=== PATIENT | male | born 1980 | race Caucasian/White ===

== ENCOUNTER 2017-04-15 17:19 | Emergency (ER) | payer MEDICAID ==
[~2017-04-15] VITALS: Wt 88.2 kg
--- NOTE | 2017-04-15 19:31 | RADRPT ---
PROCEDURE: XR Knee. CLINICAL INDICATION: Pain TECHNIQUE: AP, lateral and oblique view of the right knee were obtained. The images reviewed on a PACS workstation. COMPARISON: None. FINDINGS: Three views of the right knee demonstrate no displaced fracture. No gross malalignment is seen. Th ere is no significant degenerate change. No patellofemoral disease is identified. There is small kne e joint effusion. There is questionable small loose bodies within the posterior portion of the with joint space. The bones are normally mineralized. Soft tissues are unremarkable. IMPRESSION: No acute fracture dislocation Questionable loose bodies within the posterior aspect of the joint Small knee joint effusion RPTAT: HH .Jos Wu MD, Date Time Electronically viewed and signed by .Jos Wu MD, on 04/15/2017 19:31 .W/
[2017-04-15] MEDS ORDERED: HYDR-906 PO (19:54)
[2017-04-15 20:03] VITALS: BP 141/85; PULSE 88; RESP 18; TEMP 99.3
--- NOTE | 2017-05-01 22:09 | EN ---
Date/Time of Note Date/Time of Note DATE: 05/01/17 TIME: 22:08 Event Note Medicine Medicine Event Note This patient was evaluated by HERB Mosquera. AMY NEWSOME PA-C May 01, 2017 22:09
--- NOTE | 2017-05-05 08:16 | ERD ---
ER Documentation Chief Complaint Chief Complaint R. KNEE PAIN DENIES TRAUMA HPI 6-year-old male presents the emergency department complaining of moderate right knee pain. He admits to restricted range of motion. He denies any trauma. ROS All systems reviewed and are negative except as per history of present illness. Medications Home Meds Active Scripts Hydrocodone/Acetaminophen ([place] 5-325 Tablet) 1 Each Tablet, 1 TAB PO Q6H Y for PAIN, #30 TAB Prov:ALLISON LAIRD PA-C 04/15/17 Allergies Allergies: Coded Allergies: No Known Allergy (Unverified , 04/15/17) PMhx/Soc Medical and Surgical Hx: pt denies Medical Hx, pt denies Surgical Hx Hx Alcohol Use: No Hx Substance Use: No Hx Tobacco Use: No Smoking Status: Never smoker Physical Exam Physical Exam Const: wdwn Head: Atraumatic Eyes: Normal Conjunctiva ENT: Normal External Ears, Nose and Mouth. Neck: Full range of motion..~ No meningismus. Resp: Clear to auscultation bilaterally Cardio: Regular rate and rhythm, no murmurs Abd: Soft, non tender, non distended. Normal bowel sounds Skin: No petechiae or rashes Back: No midline or flank tenderness Ext: TTP right anterior knee, restricted ROM Neur: Awake and alert Psych: Normal Mood and Affect Procedures/MDM Is a 36-year-old male presenting to the emergency department complaining of right knee pain, there is no evidence of acute fracture dislocation however there may be loose bodies within the posterior aspect of the joint and infusion was found on x-ray. I discussed the patient that he will need to follow-up with an orthopedist for further evaluation management. Knee immobilizer was given. Prescription for [place] was provided. Patient is neurovascular intact stable to be discharged home. XRAY knee No acute fracture dislocation Questionable loose bodies within the posterior aspect of the joint Small knee joint effusion Departure Diagnosis: Primary Impression: Knee pain Condition: Stable Patient Instructions: Knee Pain, Uncertain Cause, Knee Effusion Referrals: NO PRIMARY,CARE PHYSICIAN (PCP) Additional Instructions: [facility] para un EXAMEN.Regrese a estas instalaciones si no se mejora jesus esperbamos o jesus le dijimos. [place] toda la medicina liliana y jesus se le indic. Regrese a estas instalaciones si no se mejora jesus esperbamos o jesus le dijimos. La medicina que se le recet puede causarle sueo.NO DEBE MANEJAR NI OPERAR MAQUINARIAS PELIGROSAS mientras esta tomando esta medicina! ALLISON LAIRD PA-C May 05, 2017 08:16
== END 2017-04-15 20:03 | disposition home or self-care (01) ==
LOC: FTE 17:19
DX: M25.561 Pain in right knee (principal)
CPT/HCPCS: 73562

== ENCOUNTER 2018-10-05 18:29 | Emergency (ER) | payer MEDICAID ==
[~2018-10-05] VITALS: Ht 167.6 cm; Wt 89.8 kg
[~2018-10-05 18:29] MED LIST: HYDR-4011 PO
[2018-10-05 19:03] VITALS: Ht 167.6 cm; Wt 89.8 kg
[2018-10-05] MEDS ORDERED: ONDANSETRON (ODT) 4 MG TAB ODT STA (22:15)
[2018-10-05] MEDS ORDERED: KETOROLAC 30 MG INJ IM STA (22:15)
[2018-10-05] MEDS ORDERED: DIAZEPAM 5 MG TAB PO ONE (22:30)
[2018-10-05] MEDS ORDERED: LIDOCAINE/MYLANTA 40 ML BTL PO ONE (22:30)
--- NOTE | 2018-10-05 22:45 | ERD ---
ER Documentation Chief Complaint Chief Complaint CURTIS X'S 2 WEEKS, DENIES NEURO DEFICIT HPI This is a 38-year-old male patient who presents to the emergency room with headache. Patient states he has had a headache x1 month has been to multiple emergency room's for treatment, has not received any prescriptions, has not followed up with primary care doctor. Describes headache pain in bilateral parietal region as squeezing, no photophobia, no phonophobia, no vomiting, no recent illness. + Nausea. Denies blurred vision, is not a smoker, no chronic medical problems. Complains of epigastric pain describing it as acid in his stomach. ROS All systems reviewed and are negative except as per history of present illness. Medications Home Meds Active Scripts Hydrocodone/Acetaminophen ([place] 5-325 Tablet) 1 Each Tablet, 1 TAB PO Q6H PRN for PAIN, #30 TAB Prov:ALLISON LAIRD PA-C 04/15/17 Allergies Allergies: Coded Allergies: No Known Allergy (Unverified , 04/15/17) PMhx/Soc Medical and Surgical Hx: pt denies Medical Hx, pt denies Surgical Hx Hx Alcohol Use: No Hx Substance Use: No Hx Tobacco Use: No Smoking Status: Never smoker FmHx Family History: No diabetes, No coronary disease, No other Physical Exam Vitals Vital Signs Date Temp Pulse Resp B/P (MAP) Pulse Ox O2 O2 Flow FiO2 Time Delivery Rate 10/05/18 97.9 80 20 161/94 95 19:03 (116) Physical Exam Const: No acute distress Head: Atraumatic Eyes: Normal Conjunctiva, PERRL, EOMI ENT: Normal External Ears, Nose and Mouth. Neck: Full range of motion. No meningismus. No lymphadenopathy Resp: Clear to auscultation bilaterally Cardio: Regular rate and rhythm, no murmurs Abd: Soft, non tender, non distended. 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 smile, no paresthesia, normal heel-toe, finger-nose Psych: Normal Mood and Affect Results 24 hrs Current Medications Medications Dose Sig/Aisha Start Time Status Last (Trade) Ordered Route PRN Stop Time Admin Dose Reason Admin Ondansetron 4 mg ONCE STAT 4/30/19 DC 10/05/18 HCl (Zofran ODT 22:15 22:35 Odt) 10/05/18 22:18 40 ml ONCE ONCE 10/05/18 DC 10/05/18 Miscellaneous PO 22:30 22:35 Medication 10/05/18 22:31 (Gi Cocktail (2)) Ketorolac 30 mg ONCE STAT 10/05/18 DC 10/05/18 Tromethamine IM 22:15 22:34 (Toradol) 10/05/18 22:18 Diazepam 10 mg ONCE ONCE 10/05/18 DC 10/05/18 (Valium) PO 22:30 22:35 10/05/18 22:31 Procedures/MDM Is a 38-year-old male patient who presents the emergency room with complaint of headache x1 month. Discussed with patient lifestyle management and stressors. 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 Denies any recent changes in medical occasions, stressors, noxious exposure. ED COURSE: The patient was stable throughout ED course. DIAGNOSTIC IMAGING: CT scanning of the brain were considered but deferred after considering the risks of radiation and absence of focal neurological findings. PROCEDURES: None. MEDICATIONS GIVEN: Zofran, GI cocktail, Toradol, Valium Patient tolerated medication well with no adverse reactions. Patient reported improvement in pain. MDM: Upon reevaluation after medication intervention, patient states he feels greatly improved with headache and epigastric pain nearly resolved. The patient was well-appearing with VSS and without neurological deficits at time of reevaluation and discharge. Clinical and diagnostic exam not suggestive of infection, intracranial process, SAH, SDH, neoplasm, meningitis, encephalitis, aneurysm, thrombus, temporal arteritis, sinusitis. The patient has been provided with instructions on self-care including use of analgesia, reducing triggers, and need for close follow-up with primary care physician within 1-2 days for reevaluation. The patient has been instructed to return immediately for worsening symptoms, change in pattern of current symptoms, or other acute problems. Warning signs for which immediate return are indicated have been reviewed at length DISPOSITION: The patient has been discharge home to follow-up with community physician. Departure Diagnosis: Primary Impression: Tension headache, chronic Additional Impression: Dyspepsia Condition: Stable Patient Instructions: Headache, Tension, Managing Tension-type Headache Symptoms, Preventing Tension-type Headaches Referrals: [facility] Additional Instructions: Thank you very much for allowing us to participate in your care. Your health and safety is our top priority at [facility]. Call your primary care doctor TOMORROW for an appointment during the next 2-4 days and bring all the information and medications prescribed. Have prescriptions filled and follow precisely the directions on the label. If the symptoms get worse and your provider is unavailable, return to the [facility] immediately. MILAGRO ALCANTARA NP Oct 05, 2018 22:45
[2018-10-06] MEDS ORDERED: MAGN100T6 PO (02:05)
[2018-10-06] MEDS ORDERED: OMEP40CA6 PO (02:05)
[2018-10-06] MEDS ORDERED: BUTA1CAP38 PO (02:05)
[2018-10-06] MEDS ORDERED: IBUP-1542 PO (02:05)
[2018-10-06 02:17] VITALS: BP 121/84; PULSE 64; RESP 19
== END 2018-10-06 02:20 | disposition home or self-care (01) ==
LOC: FTE 18:29
DX: G44.209 Tension-type headache, unspecified, not intractable (principal); R10.13 Epigastric pain
CPT/HCPCS: 96372; J1885; Z7502; Z7610